=== PATIENT | female | born 2000 ===

== ENCOUNTER 2024-11-25 14:56 | Outpatient (CLI) | payer OTHER, SELFPAY ==
[2024-11-30 17:49] LABS: Pap Test Digital Imaging Done
== END 2024-11-25 14:57 | disposition home or self-care (01) ==
PROVIDERS: Visit Provider Registered Nurse
DX: Z00.00 Encounter for general adult medical examination without abnormal findings (principal); Z13.6 Encounter for screening for cardiovascular disorders; R35.0 Frequency of micturition
CPT/HCPCS: 80061; 87086; 87624; 87625; 88141; 88142; 88175